=== PATIENT | male | born 1945 | race Caucasian/White ===

== ENCOUNTER 2019-12-01 10:56 | Emergency (ER) | payer MEDICARE, OTHER ==
[~2019-12-01] VITALS: Ht 182.9 cm; Wt 81.2 kg
[2019-12-01 11:31] LABS: BASOPHILS ABSOLUTE AUTO 0.04 K/mm3 (0.00-0.23); BASOPHILS PERCENT AUTO 1 % (0-2); EOSINOPHILS ABSOLUTE AUTO 0.26 K/mm3 (0.00-0.68); EOSINOPHILS PERCENT AUTO 3 % (0-6); Hematocrit 36.6 % (37.0-53.0); Hemoglobin 11.6 g/dL (13.5-17.5); IMMATURE GRAN ABSOLUTE AUTO 0.05 K/mm3 (0.00-0.10); IMMATURE GRAN PERCENT AUTO 1 % (0-1); LYMPHOCYTES ABSOLUTE AUTO 0.78 K/mm3 (0.84-5.20); LYMPHOCYTES PERCENT AUTO 10 % (21-46); MONOCYTES ABSOLUTE AUTO 0.77 K/mm3 (0.16-1.47); MONOCYTES PERCENT AUTO 9 % (4-13); Mean Corpuscular HGB Conc 31.7 g/dL (31.5-36.5); Mean Corpuscular Volume 101 fL (80-100); Mean Platelet Volume 10.1 fL (9.1-12.4); NEUTROPHILS ABSOLUTE AUTO 6.27 K/mm3 (1.96-9.15); NEUTROPHILS PERCENT AUTO 77 % (41-73); Platelet Count 159 K/mm3 (150-400); RDW Coefficient Variation 16.7 % (11.7-14.2); RDW Standard Deviation 61.5 fL (35.1-46.3); Red Blood Cell Count 3.63 M/mm3 (4.30-5.90); White Blood Cell Count 8.17 K/mm3 (4.00-11.30)
[2019-12-01] MEDS ORDERED: ALLO100 PO (11:36)
[2019-12-01] MEDS ORDERED: MERIBIN5 M1 PO (11:37)
[2019-12-01] MEDS ORDERED: Calcium Acetat667 MG PO (11:38)
[2019-12-01] MEDS ORDERED: Vitamin B-121000 MCG PO (11:38)
[2019-12-01] MEDS ORDERED: Diltiazem ER60 MG PO (11:38)
[2019-12-01] MEDS ORDERED: ACIDOPHILUS1 EAC3 PO (11:39)
[2019-12-01] MEDS ORDERED: DOCU100 PO (11:39)
[2019-12-01] MEDS ORDERED: LEVALBUTER1.25 MG/01 INH (11:40)
[2019-12-01] MEDS ORDERED: MIDO5 PO (11:41)
[2019-12-01] MEDS ORDERED: OMEP20ER PO (11:42)
[2019-12-01] MEDS ORDERED: PRAM.125 PO (11:42)
[2019-12-01] MEDS ORDERED: ONDA4ODT MM (11:43)
[2019-12-01] MEDS ORDERED: QVAR REDIHALE10.6 G3 INH (11:44)
[2019-12-01] MEDS ORDERED: OXYC5 PO (11:45)
[2019-12-01 11:47] LABS: Albumin, Blood 4.1 g/dL (3.4-5.0); Albumin/Globulin Ratio 1.2 (0.8-1.8); Bilirubin, Total 1.1 mg/dL (0.1-1.0); Bun/Creatinine Ratio 7.9 (12.0-20.0); Calcium, Blood 10.2 mg/dL (8.5-10.1); Creatinine, Blood 3.04 mg/dL (0.60-1.20); Globulin, Blood 3.5 g/dL (2.2-4.0); Potassium, Blood 3.7 mmol/L (3.5-5.5); Total Protein, Blood 7.6 g/dL (6.4-8.2); Troponin I 0.039 ng/mL (0.000-0.040)
== END 2019-12-01 13:33 | disposition home or self-care (01) ==
LOC: ER 10:56
PROVIDERS: Physician Assistant
DX: R55 Syncope and collapse (principal); K21.9 Gastro-esophageal reflux disease without esophagitis; Z99.2 Dependence on renal dialysis; Z88.8 Allergy status to other drugs, medicaments and biological substances; Z88.1 Allergy status to other antibiotic agents; Z79.899 Other long term (current) drug therapy
CPT/HCPCS: 71046; 80053; 84484; 85025; 93005; 93010; 99284-25